=== PATIENT | male | born 1980 | race African-American/Black ===

== ENCOUNTER 2018-03-22 17:11 | Emergency (ER) | payer MEDICAID, OTHER ==
[~2018-03-22] VITALS: Ht 195.6 cm; Wt 130.0 kg
[2018-03-22] MEDS ORDERED: PREDNISONE 20MG TABLET PO STA (17:42)
[2018-03-22] MEDS ORDERED: IPRATROPIUM BROMIDE (0.02%) 0.5MG/2.5ML NEB HHN STA (17:42)
[2018-03-22] MEDS ORDERED: ALBUTEROL (0.083%) 2.5MG/3ML NEB HHN STA (17:42)
[2018-03-22 20:08] VITALS: BP 142/90
== END 2018-03-22 20:40 | disposition home or self-care (01) ==
LOC: ER 17:11
DX: J45.901 Unspecified asthma with (acute) exacerbation (principal)
CPT/HCPCS: 71045; 94644; 99285; J7512; J7611

== ENCOUNTER 2018-06-17 12:00 | Emergency (ER) | payer MEDICAID ==
[~2018-06-17] VITALS: Ht 195.6 cm; Wt 129.5 kg
[2018-06-17] MEDS ORDERED: ALBUTEROL (0.083%) 2.5MG/3ML NEB HHN STA (12:48)
[2018-06-17] MEDS ORDERED: PREDNISONE 20MG TABLET PO STA (12:48)
[2018-06-17] MEDS ORDERED: IPRATROPIUM BROMIDE (0.02%) 0.5MG/2.5ML NEB HHN STA (12:48)
[2018-06-17 14:00] VITALS: BP 117/72
== END 2018-06-17 14:14 | disposition home or self-care (01) ==
LOC: ER 12:20
DX: J45.901 Unspecified asthma with (acute) exacerbation (principal)
CPT/HCPCS: 94640; 99283; J7611

== ENCOUNTER 2018-09-13 20:20 | Emergency (ER) | payer MEDICAID ==
[~2018-09-13] VITALS: Ht 193 cm; Wt 125.0 kg
[2018-09-13 22:30] VITALS: BP 142/95
== END 2018-09-13 23:30 | disposition home or self-care (01) ==
LOC: ER 22:22
DX: R06.02 Shortness of breath (principal); J45.909 Unspecified asthma, uncomplicated
CPT/HCPCS: 99283; Z7610

== ENCOUNTER 2018-10-30 19:55 | Emergency (ER) | payer MEDICAID ==
[~2018-10-30] VITALS: Ht 193 cm; Wt 126.0 kg
[2018-10-30] MEDS ORDERED: PREDNISONE 20MG TABLET PO ONE (21:00)
[2018-10-30] MEDS ORDERED: ALBUTEROL (0.083%) 2.5MG/3ML NEB HHN ONE (21:00)
[2018-10-30 22:14] VITALS: BP 138/53
== END 2018-10-30 22:16 | disposition home or self-care (01) ==
LOC: ER 19:55
DX: J45.901 Unspecified asthma with (acute) exacerbation (principal)
CPT/HCPCS: 94640; 99283; J7512; J7611; Z7610

== ENCOUNTER 2019-02-14 20:59 | Emergency (ER) | payer MEDICAID ==
[~2019-02-14] VITALS: Ht 195.6 cm; Wt 129.0 kg
[2019-02-14 21:30] VITALS: BP 136/83
[2019-02-14] MEDS ORDERED: IPRATROPIUM/ALBUTEROL 0.5-3(2.5)MG/3ML NEB HHN ONE (22:30)
== END 2019-02-14 23:16 | disposition home or self-care (01) ==
LOC: ER 20:59
DX: J45.909 Unspecified asthma, uncomplicated (principal)
CPT/HCPCS: 94640; 99283; J7620; Z7610

== ENCOUNTER 2019-03-21 00:03 | Emergency (ER) | payer MEDICAID ==
[~2019-03-21] VITALS: Ht 195.6 cm; Wt 127.0 kg
[2019-03-21] MEDS ORDERED: ALBUTEROL (0.083%) 2.5MG/3ML NEB HHN STA (00:31)
[2019-03-21] MEDS ORDERED: PREDNISONE 20MG TABLET PO STA (00:31)
[2019-03-21] MEDS ORDERED: IPRATROPIUM BROMIDE (0.02%) 0.5MG/2.5ML NEB HHN STA (00:31)
[2019-03-21 01:31] VITALS: BP 148/89
== END 2019-03-21 01:40 | disposition home or self-care (01) ==
LOC: ER 00:03
DX: J45.901 Unspecified asthma with (acute) exacerbation (principal)
CPT/HCPCS: 94640; 99283; J7512; J7611; Z7610